=== PATIENT | male | born 1990 | race Two or more races ===

== ENCOUNTER 2019-06-11 15:00 | Emergency (ER) | payer MEDICAID ==
[~2019-06-11] VITALS: Ht 180.3 cm; Wt 108.9 kg
[2019-06-11 16:39] VITALS: BP 130/75
== END 2019-06-11 17:01 | disposition home or self-care (01) ==
LOC: ER 15:00
DX: R51 Headache (principal); Z90.49 Acquired absence of other specified parts of digestive tract; W01.198A Fall on same level from slipping, tripping and stumbling with subsequent striking against other object, initial encounter; Y93.89 Activity, other specified; Y99.8 Other external cause status; Y92.89 Other specified places as the place of occurrence of the external cause